=== PATIENT | male | born 1965 | race Two or more races ===

== ENCOUNTER 2021-07-13 07:52 | Outpatient (REF) | payer MEDICAID, SELFPAY ==
--- NOTE | ~2021-07-13 | XR_ITS ---
EXAMINATION: XR KNEE, RIGHT CLINICAL INFORMATION: Pain COMPARISON: None TECHNIQUE: Four views of the right knee. FINDINGS: No fracture or subluxation. Mild medial compartment joint space narrowing. Small tricompartmental marginal osteophytes. Enthesophyte formation of the patella. No joint effusion. XR/XR knee RT 4V IMPRESSION: Mild tricompartmental degenerative changes of the right knee.
--- NOTE | ~2021-07-13 | XR_ITS ---
EXAMINATION: XR LUMBOSACRAL SPINE WITH OBLIQUES CLINICAL INFORMATION: Lower back pain COMPARISON: 10/19/2017 TECHNIQUE: AP, both oblique, and lateral views of the lumbar spine. Lateral view of the lumbosacral junction. FINDINGS: No fracture or subluxation. Vertebral body height and alignment is maintained. Mild disc space narrowing at L4-L5. Tiny multilevel endplate osteophytes. The sacroiliac joints are symmetric. The sacrum is intact. Nonobstructive bowel gas pattern. XR/XR lumbar spine 4V min IMPRESSION: Mild degenerative change of the lower lumbar spine.
--- NOTE | ~2021-07-13 | XR_ITS ---
EXAMINATION: XR WRIST, RIGHT CLINICAL INFORMATION: Pain in the right wrist COMPARISON: None TECHNIQUE: 4 views of the right wrist FINDINGS: Corticated ossification at the ulnar styloid and radial styloid likely from previous trauma. No acute fracture or dislocation. The carpal rows are well aligned. The soft tissues are unremarkable. XR/XR wrist RT w scaphoid IMPRESSION: No acute abnormality. Evidence of previous trauma at the ulnar and radial styloids.
[2021-07-13 08:05] LABS: MANUAL DIFF FLAG NO
[2021-07-13 08:48] LABS: Basophils Percent Auto 0.5 % (0-2); Eosinophils Absolute Auto 0.2 X10*3/uL (0.0-0.4); Hematocrit 43.3 % (42.0-52.0); Hemoglobin 13.6 g/dl (14.0-18.0); Imm Gran Abs Auto 0.03 X10*3/uL (0.00-0.03); Imm Gran Pct Auto 0.4 % (0.0-0.4); Lymphocytes Absolute Auto 2.4 X10*3/uL (1.2-4.9); Lymphocytes Percent Auto 31.5 % (20-40); Mean Corpuscular HGB Conc 31.4 g/dl (31.0-36.0); Mean Corpuscular Hemoglobin 25.6 pg (27.0-33.0); Mean Corpuscular Volume 81.5 fL (80.0-98.0); Mean Platelet Volume 10.2 fL (9.4-12.4); Monocytes Absolute Auto 0.6 X10*3/uL (0.1-1.2); Monocytes Percent Auto 7.8 % (2-11); Neutrophils Absolute Auto 4.42 x10*3/uL (2.0-8.3); Neutrophils Percent Auto 57.8 % (45-73); Platelet Count 284 X10*3/uL (160-400); Red Blood Count 5.31 X10*6/uL (4.60-5.80); Red Cell Distribution Width 12.9 % (11.0-16.0); White Blood Count 7.7 X10*3/uL (4.8-10.8)
[2021-07-13 09:14] LABS: Alanine Aminotransferase 23 U/L (0-40); Albumin Level 4.5 g/dL (3.5-5.0); Alkaline Phosphatase 104 U/L (39-117); Anion Gap 12 (12-20); Aspartate Amino Transferase 16 U/L (5-37); Bilirubin Total 0.8 mg/dL (0.0-1.0); Blood Urea Nitrogen 19 mg/dL (9-16); Calcium 9.6 mg/dL (8.4-10.2); Carbon Dioxide 28 mmol/L (22-29); Chloride 103 mmol/L (96-108); Cholesterol 184 mg/dL; Estimated Glomerular Filt Rate > 60; Glucose Random 279 mg/dL (60-115); HDL Cholesterol 43 mg/dL; LDL Cholesterol Calculated 104 mg/dl; Potassium 4.7 mmol/L (3.3-5.1); Sodium 138 mmol/L (135-145); Total Protein 7.1 g/dL (6.5-8.0); Triglycerides 189 mg/dL; Uric Acid 4.8 mg/dL (3.4-7.0)
[2021-07-13 09:38] LABS: Prostate Specific Antigen 1.07 ng/mL (<0.05-4.0)
== END 2021-07-13 07:53 | disposition home or self-care (01) ==
LOC: HO.XRAY 07:52
PROVIDERS: PCP Family Medicine; Visit Provider Family Medicine
DX: M25.531 Pain in right wrist (principal); M25.561 Pain in right knee; M54.50 Low back pain, unspecified; E78.5 Hyperlipidemia, unspecified; M10.9 Gout, unspecified; M17.0 Bilateral primary osteoarthritis of knee; R73.01 Impaired fasting glucose; R73.09 Other abnormal glucose; Z87.891 Personal history of nicotine dependence
CPT/HCPCS: 36415; 72110; 73110; 73564; 80053; 80061; 84153; 84550; 85025

== ENCOUNTER 2021-08-17 09:19 | Outpatient (REF) | payer MEDICAID, SELFPAY ==
[2021-08-17 10:28] LABS: Estimated Average Glucose 286 mg/dL; Hemoglobin A1c % 11.6 %
[2021-08-17 10:34] LABS: Glucose Fasting 192 mg/dL (60-99)
== END 2021-08-17 09:20 | disposition home or self-care (01) ==
LOC: HO.LAB 09:19
PROVIDERS: PCP Family Medicine; Visit Provider Family Medicine
DX: R73.09 Other abnormal glucose (principal)
CPT/HCPCS: 36415; 82947; 83036

== ENCOUNTER 2023-05-25 14:42 | Outpatient (REF) | payer MEDICAID, SELFPAY ==
[2023-05-25 16:13] LABS: Anion Gap 15 (12-20); Blood Urea Nitrogen 19 mg/dL (9-16); Calcium 9.6 mg/dL (8.4-10.2); Carbon Dioxide 24 mmol/L (22-29); Chloride 103 mmol/L (96-108); Estimated Glomerular Filt Rate > 60; Glucose Random 154 mg/dL (60-115); Potassium 4.2 mmol/L (3.3-5.1); Sodium 138 mmol/L (135-145)
== END 2023-05-25 14:43 | disposition home or self-care (01) ==
LOC: HO.HHCL 14:42
PROVIDERS: Visit Provider Family Medicine
DX: E11.9 Type 2 diabetes mellitus without complications (principal)
CPT/HCPCS: 36415; 80048